=== PATIENT | female | born 1990 | race Two or more races ===

== ENCOUNTER → 2018-04-10 | Outpatient (CLI) | payer OTHER ==
--- NOTE | 2018-04-10 15:39 | REP ---
Partial lumbar spine three views History: Back pain There is no acute fracture or subluxation. The L3-4 through L5 S1 intervertebral discs are decreased in height consistent with disc degeneration. Osteophytes are present on L5. Impression: Degenerative change as described above. Electronically Signed by Gianfranco Islas MD 04/10/2018 01:30 P
== END ==
LOC: M WUC 12:47
PROVIDERS: ATTEND Nurse Practitioner Family
DX: Z00.01 Encounter for general adult medical examination with abnormal findings (principal); M54.89 Other dorsalgia

== ENCOUNTER → 2018-06-12 | Outpatient (REF) | LOC: M LAB 09:38 | PROVIDERS: ATTEND Nurse Practitioner Adult Health | DX: Z02.89 Encounter for other administrative examinations (principal) ==

== ENCOUNTER 2018-07-29 14:11 | Emergency (ER) | payer OTHER ==
[~2018-07-29] VITALS: Ht 175.3 cm; Wt 99.1 kg
[2018-07-29] MEDS ORDERED: [UNRECOGNIZED DRUG - CODE] PO (14:44)
[2018-07-29] MEDS ORDERED: CYTO100T PO (14:45)
[2018-07-29] MEDS ORDERED: NS 1,000 ML IV ONE (15:15)
[2018-07-29 15:32] LABS: BASO % 0.5 % (0.0-1.0); EOS % 0.5 % (0.0-3.0); HEMATOCRIT 36.6 % (36.0-47.0); HEMOGLOBIN 12.2 g/dl (12.0-15.5); LYMPH # 1.1 10^3/uL (1.5-6.5); LYMPH % 25.5 % (24.0-44.0); MEAN CORPUSCULAR HEMOGLOBIN 29.5 pg (27.0-33.0); MEAN CORPUSCULAR HGB CONC 33.3 g/dl (32.0-36.5); MEAN CORPUSCULAR VOLUME 88.6 fl (80.0-96.0); MONO # 0.5 10^3/uL (0.0-0.8); MONO % 10.5 % (0.0-5.0); NEUTROPHILS # 2.7 10^3/uL (1.8-7.7); NEUTROPHILS % 62.5 % (36.0-66.0); PLATELET COUNT, AUTOMATED 225 10^3/uL (150-450); RED BLOOD COUNT 4.13 10^6/uL (4.00-5.40); WHITE BLOOD COUNT 4.3 10^3/uL (4.0-10.0)
[2018-07-29 15:46] LABS: BLOOD UREA NITROGEN 16 MG/DL (7-18); CARBON DIOXIDE LEVEL 26 MEQ/L (21-32); CHLORIDE LEVEL 105 MEQ/L (98-107); CREATININE FOR GFR 0.53 MG/DL (0.55-1.30); GLOMERULAR FILTRATION RATE > 60.0 (>60); GLUCOSE, FASTING 92 MG/DL (70-100); POTASSIUM SERUM 3.3 MEQ/L (3.5-5.1); SODIUM LEVEL 137 MEQ/L (136-145)
[2018-07-29 16:06] VITALS: BP 106/55
--- NOTE | 2018-07-29 16:12 | REP ---
REASON: Heavy vaginal bleeding and pelvic pain. Transvesical and transvaginal pelvic ultrasonography was obtained. The uterus measures 9.6 x 5.1 x 6.8 cm. The endometrial echo complex measures 2 cm in thickness and is heterogenous , however, there is no gestational sac within the endometrial cavity. The right ovary measures 4 x 2.4 x 2.4 cm. In the substance of the right ovary there is a complex 1.6 cm sized cyst. The right ovarian RI is 0.45. Left ovary measures 2.7 x 2.2 x 2.2 cm and is unremarkable. The left ovarian RI is 0.47. There is a small amount of fluid in the right adnexa and posterior cul-de-sac. The urinary bladder measures 8 x 3 x 9 cm. IMPRESSION:There was no evidence of an intrauterine or extrauterine at this time. There is no evidence of ovarian torsion. The findings might potentially represent spontaneous , however, beta HCG value is not available at the time this examination is performed. Clinical correlation and followup is necessary. Electronically Signed by Hussain Shah DO 07/29/2018 04:53 P
[2018-07-29 16:29] LABS: HCG, SERUM QUANTITATIVE 2370 MIU/ML
== END 2018-07-29 16:09 | disposition home or self-care (01) ==
LOC: M ED 14:11
DX: O03.6 Delayed or excessive hemorrhage following complete or unspecified spontaneous abortion (principal)

== ENCOUNTER → 2018-08-12 | Outpatient (REF) | payer OTHER ==
[~2018-08-12] MED LIST: CYTO100T PO; [UNRECOGNIZED DRUG - CODE] PO
== END ==
LOC: M SFHCLERA 15:38
PROVIDERS: ATTEND Physician Assistant
DX: R50.9 Fever, unspecified (principal)

== ENCOUNTER → 2018-11-20 | Outpatient (REF) | payer OTHER ==
[2018-11-20 16:02] LABS: PLATELET COUNT, AUTOMATED 274 10^3/uL (150-450)
[2018-11-20 16:14] LABS: INR 1.02; PROTHROMBIN TIME 13.1 SECONDS (11.8-14.0)
[2018-11-20 16:15] LABS: PARTIAL THROMBOPLASTIN TIME 33.7 SECONDS (25.0-38.4)
== END ==
LOC: M LABDRAW1 15:12
PROVIDERS: ATTEND Physical Medicine & Rehabilitation
DX: M47.817 Spondylosis without myelopathy or radiculopathy, lumbosacral region (principal)

== ENCOUNTER → 2019-04-16 | Outpatient (REF) | payer OTHER ==
[2019-04-16 16:03] LABS: HCG, SERUM QUALITATIVE NEGATIVE (NEGATIVE)
== END ==
LOC: M LABDRAW1 13:50
PROVIDERS: ATTEND Physician Assistant
DX: Z32.00 Encounter for pregnancy test, result unknown (principal)